=== PATIENT | female | born 1950 | race Caucasian/White ===

== ENCOUNTER 2018-04-18 08:19 | Inpatient (IN) | payer MEDICARE, OTHER ==
[2018-04-13 16:23] LABS: BASOPHILS % (AUTO) 0.3 % (0-1); EOSINOPHILS # (AUTO) 0.3 X10'3 (0-0.9); EOSINOPHILS % (AUTO) 3.8 % (0-6); LYMPHOCYTES # (AUTO) 1.2 X10'3 (1.1-4.8); LYMPHOCYTES % (AUTO) 13.3 % (21-51); MEAN CORPUSCULAR HEMOGLOBIN 32.6 PG (27.0-31.0); MEAN CORPUSCULAR HGB CONC 34.2 % (33.0-36.5); MEAN CORPUSCULAR VOLUME 95.5 FL (78-98); MEAN PLATELET VOLUME 7.7 FL (7.4-10.4); MONOCYTES # (AUTO) 0.7 X10'3 (0-0.9); MONOCYTES % (AUTO) 8.6 % (2-12); NEUTROPHILS # (AUTO) 6.5 X10'3 (1.8-7.7); PRE OP HEMATOCRIT 33.6 % (35.0-45.0); PRE OP HEMOGLOBIN 11.5 g/dL (12.0-16.0); PRE OP PLATELET COUNT 315 X10'3 (140-440); RED BLOOD COUNT 3.52 X10'6 (4.20-5.60); RED CELL DISTRIBUTION WIDTH 14.2 % (11.5-14.5)
[2018-04-13 16:35] LABS: PRE OP PROTIME 9.9 SECONDS (9.0-12.0)
[2018-04-13 16:40] LABS: ALBUMIN 3.1 G/DL (3.4-5.0); ALBUMIN/GLOBULIN RATIO 0.7 (1.1-1.5); ALKALINE PHOSPHATASE 81 IU/L (46-116); BLOOD UREA NITROGEN 13 MG/DL (7-18); BUN/CREATININE RATIO 14.3 (6.6-38.0); CALCIUM 8.7 MG/DL (8.5-10.1); CHLORIDE 100 MMOL/L (99-107); CREATININE 0.91 MG/DL (0.40-0.90); PRE OP ALT 23 U/L (30-65); PRE OP ANION GAP 9 (8-16); PRE OP AST 15 U/L (10-37); PRE OP BILIRUB, TOTAL 0.5 MG/DL (0.0-1.0); PRE OP GLUCOSE 85 MG/DL (70-104); PRE OP POTASSIUM 4.3 MMOL/L (3.4-5.1); PRE OP SODIUM 138 MMOL/L (135-145); TOTAL CARBON DIOXIDE 28.9 MMOL/L (24-32); TOTAL PROTEIN 7.6 G/DL (6.4-8.2); eGFR 61 ML/MIN
[2018-04-18] VITALS (19 sets, daily range): BP systolic 133–177; BP diastolic 73–100
[~2018-04-18] VITALS: Ht 175.3 cm; Wt 130.0 kg
[~2018-04-18 08:19] MED LIST: ASPI-1053 PO; ATOR20TA PO; CALC1TAB82 PO; CETI10CA PO; CHOL50004 PO; CLINDAmcin 900mg/NS 50ml IVPB 50 ML IV ONE; CLOB50FO8 TP; CYAN50003 PO; CYCL-1 PO; DOCUMENT DATE & TIME OF BETA-BLOCKER PO ONE; EST1T PO; GABA-532 PO; GABA300C PO; HYDR-4383 PO; LACT1CAP67 PO; LISI30TA4 PO; LORA0.5T PO; METO50TA17 PO; MULT1TAB74 PO; OMEG1CAP PO; PANT-47 PO; RANI150T8 PO; VENL150C58 PO; VITC500T PO; famotidine 20mg tablet PO ONE; ringers solution, lacted 1,000 ML IV SCH; tranexamic acid inj. 1,000 MG in normal saline 100 ML IV ONE; vancomycin inj 1,500 MG in normal saline 300ml IV soln IV ONE
[2018-04-18] MEDS ORDERED: LIDOcaine 1% (10mg/ml) 2ml vial ONE (08:48)
[2018-04-18] MEDS ORDERED: cloNIDine hcl/PF 100mcg/ml inj ONE (10:28)
[2018-04-18] MEDS ORDERED: ROPIVAcaine 0.5% (5mg/ml) 30ml vial ONE (10:28)
[2018-04-18] MEDS ORDERED: propofol inj 20 ML IV ONE (10:31)
[2018-04-18] MEDS ORDERED: LIDOcaine 2% (20mg/ml) 5ml vial ONE (10:31)
[2018-04-18] MEDS ORDERED: fentaNYL /PF 50mcg/ml 5ml ampule ONE (10:31)
[2018-04-18] MEDS ORDERED: ceFAZolin 1000mg inj ONE (10:32)
[2018-04-18] MEDS ORDERED: sevoflurane 250ml liquid IH ONE (10:46)
[2018-04-18] MEDS ORDERED: rocuronium 10mg/ml inj IV ONE (10:46)
[2018-04-18] MEDS ORDERED: dexamethasone sod phosphate 4mg/ml inj. ONE (11:07)
[2018-04-18] MEDS ORDERED: ondansetron/PF 4mg/2ml inj ONE (11:09)
[2018-04-18] MEDS ORDERED: midazolam 2 mg/2 ml injection ONE (11:12)
[2018-04-18] MEDS ORDERED: hydrALAZINE 20mg/ml inj. IV ONE (11:43)
[2018-04-18] MEDS ORDERED: ondansetron/PF 4mg/2ml inj IV PRN ×2 (11:50→14:20)
[2018-04-18] MEDS ORDERED: morphine 4 MG/ML inj SYRINge IV PRN ×2 (11:50)
[2018-04-18] MEDS ORDERED: ringers solution, lacted 1,000 ML IV SCH (11:50)
[2018-04-18] MEDS ORDERED: enalaprilat dihydrate 2.5mg/2ml vial IV PRN (11:50)
[2018-04-18] MEDS ORDERED: hydrALAZINE 20mg/ml inj. IV PRN (11:50)
[2018-04-18] MEDS ORDERED: fentaNYL/PF 50MCG/1 ML 2ML syringe IV PRN ×2 (11:50)
[2018-04-18] MEDS ORDERED: metoprolol tartrate 1mg/ml inj IV ONE (13:28)
[2018-04-18] MEDS ORDERED: magnesium hydroxide 30ml (MOM) UD suspension PO PRN (14:20)
[2018-04-18] MEDS ORDERED: HYDROcodone/acetaminophen 10/325mg tab PO PRN (14:20)
[2018-04-18] MEDS ORDERED: HYDROmorphone 1 mg/ml syringe IV PRN (14:20)
[2018-04-18] MEDS ORDERED: diphenhydrAMINE 25mg capsule PO PRN ×2 (14:20)
[2018-04-18] MEDS ORDERED: bisacodyl 10mg suppository rectal RC PRN (14:20)
[2018-04-18] MEDS ORDERED: acetaminophen 325mg tablet PO PRN (14:20)
--- NOTE | 2018-04-18 14:25 | NUR ---
Received from OR via , accompanied by DR. LOPEZ, Anesthesiologist and report given by Anesthesiolgist. S/P LT. TKA PER DR. BARNES. PT. DROWSY, RESPONDS EASILY TO NAME, ANSWERS APPROP. DENIES PAIN @ THIS TIME. RESPS. EVEN & UNLABORED, STRONG NON PRODUCTIVE COUGH. LT. KNEE GARDENIA BANDAGE INTACT. POWDER ANGIE TO LT. KNEE IN PLACE FROM OR. HEMOVAC DRAIN TO KEYANNA W/ SM AMT. SANG DRAINAGE PRESENT. MOVES TOES/FEET FREELY. FEET PINK, WARM W/ GOOD CAP REFILL. + STEFANO. DP PULSES PRESENT W/ DOPPLER. PILLOW PLACE BEHIND LT. KNEE PER DR. BARNES. ELLISON TO GRAVITY W/ CL. YELLOW URINE PRESENT. LT. WRIST IV PATENT. PT. REASSURED.
--- NOTE | 2018-04-18 15:07 | NUR ---
MEDICATED FOR PAIN. REASSURED. TAKING ICE CHIPS WITHOUT UPSET.
--- NOTE | 2018-04-18 15:40 | NUR ---
Report called to receiving nurse, CATIA MARION . Transferred via BED. Belongings SENT W/ PT. PT. A X O X 4. APPROP. RESPS. EVEN & UNLABORED. STATES KNEE PAIN LESS AFTER MEDS, "JUST SOME PRESSURE". REASSURED. LT. KNEE GARDENIA DRSG, POWDER ANGIE DRY & INTACT. HEMOVAC DRAIN INTACT W/ SM. AMT. SANG. DRAINAGE PRESENT. LT. FOOT PINK, WARM, W/ GOOD CAP REFILL. MOVING FEET FREELY. ELLISON TO GRAVITY W/ CL. YELLOW URINE PRESENT. LT. WRIST IV PATENT. . Special Issues communicated to receiving nurse.
--- NOTE | 2018-04-18 16:00 | NUR ---
ASSUMED CARE, RECEIVED REPORT FROM LLUVIA BARDALES, PT A&OX4, FAMILY AT BEDSIDE, REPORTS PAIN 5/10, WILL CONTINUE TO MONITOR.
[2018-04-18] MEDS: ceFAZolin 1GM/D5W- ADD-VANTAGE 50 ML IV SCH (16:04)
[2018-04-18] MEDS: HYDROcodone/acetaminophen 10/325mg tab PO PRN ×2 (16:13→20:35)
[2018-04-18] MEDS: potassium Cl 20mEq in NS 1,000 ML IV SCH (17:37)
[2018-04-18] MEDS: aspirin 81mg tab.chew PO SCH (17:40)
--- NOTE | 2018-04-18 18:30 | NUR ---
Problems reprioritized. Patient report given, questions answered & plan of care reviewed with JAEL BARDALES.
--- NOTE | 2018-04-18 18:30 | NUR ---
Patient in room ORTHO 4015. I have received report from mir Naranjo and had the opportunity to ask questions and assume patient care.
[2018-04-18] MEDS ORDERED: EMOLL TP SCH (20:00)
[2018-04-18] MEDS ORDERED: vancomycin/NS 1 GM ADD-VANTAGE 250 ML IV SCH (20:00)
[2018-04-18] MEDS: gabapentin 300mg capsule PO SCH ×2 (20:00→20:35)
[2018-04-18] MEDS ORDERED: CLOBETASOL PROPIONATE TP SCH (20:00)
[2018-04-18] MEDS: sennosides 8.6mg tablet PO SCH (20:36)
[2018-04-18] MEDS: famotidine 20mg tablet PO SCH (20:36)
[2018-04-18] MEDS: metoprolol tartrate 50mg tablet PO SCH (20:36)
[2018-04-18] MEDS ORDERED: RANITIDINE HCL PO SCH (21:00)
[2018-04-18] MEDS ORDERED: cyclobenzaprine 10mg tablet PO ONE (22:55)
[2018-04-18] MEDS ORDERED: ketorolac trometh. 30mg/ml inj. IM SCH (22:55)
[2018-04-18] MEDS: ketorolac trometh. 30mg/ml inj. IV SCH (23:23)
--- NOTE | 2018-04-19 00:03 | NUR ---
at 2200, pt started having terrible spasm in left thigh. administered dilaudid but no relief. muscle spasm was occuring around every 20 seconds or so. hr was up to 110s. contacted Dr. Ruelas and received order for flexiril and toradol. pt states she has less frequent spasms now.
[2018-04-19] MEDS: HYDROcodone/acetaminophen 10/325mg tab PO PRN ×5 (00:36→22:42)
[2018-04-19] MEDS: ceFAZolin 1GM/D5W- ADD-VANTAGE 50 ML IV SCH (00:37)
[2018-04-19 02:00] VITALS: BP 154/87
[2018-04-19] MEDS ORDERED: ketorolac trometh. 30mg/ml inj. IV SCH (02:00)
[2018-04-19] MEDS: ketorolac trometh. 30mg/ml inj. IV SCH ×3 (02:53→14:00)
[2018-04-19] MEDS: potassium Cl 20mEq in NS 1,000 ML IV SCH ×2 (02:58→10:15)
[2018-04-19 06:00] VITALS: BP 121/77
[2018-04-19 06:16] LABS: BASOPHILS % (AUTO) 0 % (0-1); EOSINOPHILS # (AUTO) 0.2 X10'3 (0-0.9); EOSINOPHILS % (AUTO) 1.4 % (0-6); HEMATOCRIT 26.3 % (35.0-45.0); HEMOGLOBIN 8.8 g/dl (12.0-16.0); LYMPHOCYTES # (AUTO) 0.9 X10'3 (1.1-4.8); LYMPHOCYTES % (AUTO) 7.6 % (21-51); MEAN CORPUSCULAR HGB CONC 33.5 % (33.0-36.5); MEAN CORPUSCULAR VOLUME 95.5 FL (78-98); MEAN PLATELET VOLUME 7.6 FL (7.4-10.4); MONOCYTES # (AUTO) 0.7 X10'3 (0-0.9); PLATELET COUNT 325 X10'3 (140-440); RED BLOOD COUNT 2.75 X10'6 (4.20-5.60); RED CELL DISTRIBUTION WIDTH 15.1 % (11.5-14.5); WHITE BLOOD COUNT 11.8 X10'3 (4.5-11.0)
[2018-04-19 07:03] LABS: ALANINE AMINOTRANSFERASE 24 U/L (12-78); ALBUMIN 2.8 G/DL (3.4-5.0); ALBUMIN/GLOBULIN RATIO 0.7 (1.1-1.5); ALKALINE PHOSPHATASE 64 IU/L (46-116); ANION GAP 10 (8-16); ASPARTATE AMINO TRANSFERASE 18 U/L (10-37); BILIRUBIN,TOTAL 0.4 MG/DL (0.1-1.0); BLOOD UREA NITROGEN 18 MG/DL (7-18); BUN/CREATININE RATIO 13.2 (6.6-38.0); CALCIUM 7.5 MG/DL (8.5-10.1); CHLORIDE 101 MMOL/L (99-107); CREATININE 1.36 MG/DL (0.40-0.90); GLUCOSE 112 MG/DL (70-104); POTASSIUM 4.8 MMOL/L (3.5-5.1); SODIUM 137 MMOL/L (135-145); TOTAL CARBON DIOXIDE 25.9 MMOL/L (24-32); TOTAL PROTEIN 6.6 G/DL (6.4-8.2); eGFR 39 ML/MIN
[2018-04-19] MEDS ORDERED: non-formulary drug (Lisinopril 1 TAB) PO SCH (08:00)
[2018-04-19] MEDS: cetirizine 10mg tablet PO SCH (08:55)
[2018-04-19] MEDS: aspirin 81mg tab.chew PO SCH ×2 (08:57→17:03)
[2018-04-19] MEDS: venlafaxine XR 75mg capsule (Q24H) PO SCH (08:57)
[2018-04-19] MEDS: pantoprazole 40mg Tablet.DR PO SCH (08:57)
[2018-04-19] MEDS: gabapentin 300mg capsule PO SCH ×3 (08:58→20:42)
[2018-04-19] MEDS: metoprolol tartrate 50mg tablet PO SCH ×2 (08:58→20:43)
[2018-04-19] MEDS: estradiol 1mg tablet PO SCH (08:58)
[2018-04-19] MEDS: lisinopril 10 MG tablet PO SCH (08:59)
[2018-04-19 10:00] VITALS: BP 123/55
[2018-04-19] MEDS: cyclobenzaprine 10mg tablet PO PRN ×2 (10:30→20:43)
--- NOTE | 2018-04-19 10:57 | NUR ---
Joint consult: Pt having muscle spasms and trouble talking at this time not feeling well; will return for high protein ed prior to d/c. Addendum: 04/19/18 at [address] Amended: Links added.
[2018-04-19] MEDS: diazepam 5mg tablet PO PRN (12:34)
[2018-04-19 14:00] VITALS: BP 122/62
[2018-04-19] MEDS: normal saline 1000ml 1,000 ML IV SCH (17:03)
[2018-04-19 18:00] VITALS: BP 135/69
[2018-04-19] MEDS: sennosides 8.6mg tablet PO SCH (20:42)
[2018-04-19] MEDS: famotidine 20mg tablet PO SCH (20:42)
[2018-04-19 22:00] VITALS: BP 160/67
[2018-04-20] MEDS: diazepam 5mg tablet PO PRN (00:32)
[2018-04-20] MEDS: normal saline 1000ml 1,000 ML IV SCH (02:55)
[2018-04-20 05:00] VITALS: BP 119/83
[2018-04-20] MEDS: HYDROcodone/acetaminophen 10/325mg tab PO PRN ×2 (05:40→10:26)
[2018-04-20 07:21] LABS: BASOPHILS % (AUTO) 0.4 % (0-1); EOSINOPHILS # (AUTO) 0.7 X10'3 (0-0.9); EOSINOPHILS % (AUTO) 7.1 % (0-6); HEMATOCRIT 23.8 % (35.0-45.0); LYMPHOCYTES # (AUTO) 1.7 X10'3 (1.1-4.8); LYMPHOCYTES % (AUTO) 18.2 % (21-51); MEAN CORPUSCULAR HEMOGLOBIN 32.5 PG (27.0-31.0); MEAN CORPUSCULAR HGB CONC 33.6 % (33.0-36.5); MEAN CORPUSCULAR VOLUME 96.6 FL (78-98); MEAN PLATELET VOLUME 7.8 FL (7.4-10.4); MONOCYTES # (AUTO) 1.1 X10'3 (0-0.9); MONOCYTES % (AUTO) 11.7 % (2-12); NEUTROPHILS # (AUTO) 5.8 X10'3 (1.8-7.7); NEUTROPHILS % (AUTO) 62.6 % (42-75); PLATELET COUNT 254 X10'3 (140-440); RED BLOOD COUNT 2.47 X10'6 (4.20-5.60); RED CELL DISTRIBUTION WIDTH 14.9 % (11.5-14.5); WHITE BLOOD COUNT 9.3 X10'3 (4.5-11.0)
[2018-04-20 07:43] LABS: ALANINE AMINOTRANSFERASE 24 U/L (12-78); ALBUMIN 2.7 G/DL (3.4-5.0); ALBUMIN/GLOBULIN RATIO 0.7 (1.1-1.5); ALKALINE PHOSPHATASE 63 IU/L (46-116); ANION GAP 8 (8-16); ASPARTATE AMINO TRANSFERASE 27 U/L (10-37); BILIRUBIN,TOTAL 0.3 MG/DL (0.1-1.0); BLOOD UREA NITROGEN 16 MG/DL (7-18); BUN/CREATININE RATIO 14.3 (6.6-38.0); CALCIUM 7.7 MG/DL (8.5-10.1); CHLORIDE 105 MMOL/L (99-107); CREATININE 1.12 MG/DL (0.40-0.90); GLUCOSE 95 MG/DL (70-104); POTASSIUM 4.1 MMOL/L (3.5-5.1); SODIUM 140 MMOL/L (135-145); TOTAL CARBON DIOXIDE 26.7 MMOL/L (24-32); TOTAL PROTEIN 6.5 G/DL (6.4-8.2); eGFR 48 ML/MIN
[2018-04-20] MEDS: gabapentin 300mg capsule PO SCH (07:53)
[2018-04-20] MEDS: estradiol 1mg tablet PO SCH (07:54)
[2018-04-20] MEDS: pantoprazole 40mg Tablet.DR PO SCH (07:55)
[2018-04-20] MEDS: cetirizine 10mg tablet PO SCH (07:55)
[2018-04-20] MEDS: metoprolol tartrate 50mg tablet PO SCH (07:55)
[2018-04-20] MEDS: aspirin 81mg tab.chew PO SCH (07:56)
[2018-04-20] MEDS: lisinopril 10 MG tablet PO SCH (07:57)
[2018-04-20] MEDS: venlafaxine XR 75mg capsule (Q24H) PO SCH (08:30)
--- NOTE | 2018-04-20 08:30 | NUR ---
Patient in room ORTHO 4015. I have received report from OTILIA BARDALES and had the opportunity to ask questions and assume patient care.
[2018-04-20 10:00] VITALS: BP 129/58
[2018-04-20] MEDS ORDERED: ASPI-1265 PO (10:09)
[2018-04-20] MEDS ORDERED: VAL5T PO (10:11)
[2018-04-20] MEDS ORDERED: HYDR-3972 PO (10:14)
--- NOTE | 2018-04-20 11:47 | NUR ---
F/U: Pt on regular diet with document PO intake 100% meeting nutrient needs with adequate protein to aid in wound healing. Pt being d/c'ed. Will continue to follow. Addendum: 04/20/18 at [address] Amended: Links added.
== END 2018-04-20 12:15 | disposition home or self-care (01) | DRG 470 ==
LOC: PAS IN 08:19 → EDSTATUS 10:45 → ORTHO 4S 16:00
PROVIDERS: ADMIT Orthopaedic Surgery; ATTEND Orthopaedic Surgery
PROC: 3E0T3BZ Introduction of Anesthetic Agent into Peripheral Nerves and Plexi, Percutaneous Approach (ICD-10-PCS; 2018-04-18)
PROC: 0SRD0J9 Replacement of Left Knee Joint with Synthetic Substitute, Cemented, Open Approach (ICD-10-PCS; principal; 2018-04-18 10:46)
DX: M17.12 Unilateral primary osteoarthritis, left knee (principal); D62 Acute posthemorrhagic anemia; M25.562 Pain in left knee; K21.9 Gastro-esophageal reflux disease without esophagitis; G47.30 Sleep apnea, unspecified; Z87.891 Personal history of nicotine dependence; L40.9 Psoriasis, unspecified; Z88.1 Allergy status to other antibiotic agents; G89.29 Other chronic pain; M54.9 Dorsalgia, unspecified; M62.838 Other muscle spasm; F41.9 Anxiety disorder, unspecified; I10 Essential (primary) hypertension
CPT/HCPCS: 36415; 80053; 85025; 85610; 85730; 86885; 86900; 86901; 86920; 87070; 97110; 97116; 97162; 97530; A6449; A6454; A7000; C1713; C1758; C1776; G0378; J0360; J0690; J0735; J1100; J1170; J1885; J2001; J2250; J2270; J2405; J2704; J2795; J3010; J3370; J3490; J7030; J7120

== ENCOUNTER 2020-01-19 05:42 | Day surgery (SDC) | payer MEDICARE, OTHER ==
[2020-01-11 14:48] LABS: BASOPHILS # (AUTO) 0.1 X10'3 (0-0.2); EOSINOPHILS # (AUTO) 0.2 X10'3 (0-0.9); EOSINOPHILS % (AUTO) 2.7 % (0-6); LYMPHOCYTES # (AUTO) 1.6 X10'3 (1.1-4.8); LYMPHOCYTES % (AUTO) 19.2 % (21-51); MEAN CORPUSCULAR HEMOGLOBIN 32.5 PG (27.0-31.0); MEAN CORPUSCULAR HGB CONC 34.4 g/dL (33.0-36.5); MEAN CORPUSCULAR VOLUME 94.6 FL (78-98); MEAN PLATELET VOLUME 8.1 FL (7.4-10.4); MONOCYTES # (AUTO) 0.6 X10'3 (0-0.9); MONOCYTES % (AUTO) 7.1 % (2-12); NEUTROPHILS # (AUTO) 5.9 X10'3 (1.8-7.7); PRE OP HEMATOCRIT 36.8 % (35.0-45.0); PRE OP HEMOGLOBIN 12.7 g/dL (12.0-16.0); PRE OP PLATELET COUNT 278 X10'3 (140-440); RED CELL DISTRIBUTION WIDTH 14.7 % (11.5-14.5)
[2020-01-11 14:59] LABS: ALBUMIN 3.8 G/DL (3.4-5.0); ALBUMIN/GLOBULIN RATIO 0.9 (1.1-1.5); ALKALINE PHOSPHATASE 63 IU/L (46-116); BLOOD UREA NITROGEN 16 MG/DL (7-18); BUN/CREATININE RATIO 14.8 (6.6-38.0); CALCIUM 8.6 MG/DL (8.5-10.1); CHLORIDE 99 MMOL/L (99-107); CREATININE 1.08 MG/DL (0.40-0.90); PRE OP ALT 26 U/L (30-65); PRE OP ANION GAP 11 (8-16); PRE OP AST 17 U/L (10-37); PRE OP BILIRUB, TOTAL 0.6 MG/DL (0.0-1.0); PRE OP GLUCOSE 107 MG/DL (70-104); PRE OP SODIUM 137 MMOL/L (135-145); TOTAL PROTEIN 7.9 G/DL (6.4-8.2); eGFR 50 ML/MIN
[~2020-01-19] VITALS: Ht 175.3 cm; Wt 123.8 kg
[~2020-01-19 05:42] MED LIST changes: +AMLO5TAB16 PO; -ASPI-1053 PO; +ASPI81TA96 PO; -CALC1TAB82 PO; -CETI10CA PO; -CHOL50004 PO; -CLINDAmcin 900mg/NS 50ml IVPB 50 ML IV ONE; +CLOB15OI3 TOP; -CLOB50FO8 TP; -CYAN50003 PO; -CYCL-1 PO; +CYCL-394 PO; -DOCUMENT DATE & TIME OF BETA-BLOCKER PO ONE; +ESTR42.53 VG; -LACT1CAP67 PO; +LEVO25TA2 PO; +LISI-600 PO; -LISI30TA4 PO; +LORA-268 PO; -LORA0.5T PO; -MULT1TAB74 PO; -RANI150T8 PO; -VITC500T PO; +ceFAZolin inj. 3,000 MG in normal saline 100ml IV soln 100 ML IV ONE; -tranexamic acid inj. 1,000 MG in normal saline 100 ML IV ONE; -vancomycin inj 1,500 MG in normal saline 300ml IV soln IV ONE
[2020-01-19] MEDS ORDERED: LIDOcaine 1% (10mg/ml) 2ml vial ONE (06:14)
[2020-01-19] MEDS ORDERED: BUPIVAcaine/PF 2.5mg/ml (0.25%) 10ml vial ONE (06:57)
[2020-01-19 07:11] VITALS: BP 134/70
[2020-01-19 07:12] VITALS: BP 134/70
[2020-01-19] MEDS ORDERED: morphine 2 MG/ML inj. syringe IV PRN (07:35)
[2020-01-19] MEDS ORDERED: labetalol 20mg/4ml (5mg/ml) syringe IV PRN (07:35)
[2020-01-19] MEDS ORDERED: ringers solution, lacted 1,000 ML IV SCH (07:35)
[2020-01-19] MEDS ORDERED: hydrALAZINE 20mg/ml inj. IV PRN (07:35)
[2020-01-19] MEDS ORDERED: fentaNYL/PF 50MCG/1 ML 2ML syringe IV PRN ×2 (07:35)
[2020-01-19] MEDS ORDERED: ondansetron/PF 4mg/2ml inj IV PRN (07:35)
[2020-01-19] MEDS ORDERED: morphine 4 MG/ML inj SYRINge IV PRN (07:35)
[2020-01-19] MEDS ORDERED: LIDOcaine 0.5% (5mg/ml) 50ml vial ONE (07:38)
[2020-01-19] MEDS ORDERED: MIDAZolam 5mg/ml 2ml vial IV PRN (07:40)
[2020-01-19] MEDS ORDERED: fentaNYL/PF 50MCG/1 ML 2ML syringe ONE (08:35)
[2020-01-19] MEDS ORDERED: MIDAZolam 5mg/5ml vial ONE (08:36)
[2020-01-19] MEDS ORDERED: ketorolac trometh. 30mg/ml inj. ONE (09:13)
[2020-01-19 09:26] VITALS: BP 133/66
--- NOTE | 2020-01-19 09:26 | NUR ---
ARRIVED IN PACU VIA GURNEY FROM OR WITH DR Morrissey IN ATTENDANCE. REPORT RECEIVED. VS STABLE. AWAKE. NO C/O PAIN
[2020-01-19 09:36] VITALS: BP 137/83
[2020-01-19 09:46] VITALS: BP 146/82
--- NOTE | 2020-01-19 09:56 | NUR ---
SANTIAGO LIQUIDS. WAITING FOR
--- NOTE | 2020-01-19 10:16 | NUR ---
TO CAR VIA W/C, ASSISTED BY NURSE WITHOUT INCIDENT. REVIEWED INSTRUCTIONS WITH PT AND .
== END 2020-01-19 10:16 | disposition home or self-care (01) ==
LOC: PAS 05:42
PROVIDERS: ATTEND Orthopaedic Surgery Hand Surgery
DX: G56.02 Carpal tunnel syndrome, left upper limb (principal); M65.4 Radial styloid tenosynovitis [de Quervain]; Z20.828 Contact with and (suspected) exposure to other viral communicable diseases; G47.30 Sleep apnea, unspecified; I10 Essential (primary) hypertension; E03.9 Hypothyroidism, unspecified; M19.90 Unspecified osteoarthritis, unspecified site; Z87.891 Personal history of nicotine dependence; Z88.1 Allergy status to other antibiotic agents; Z88.8 Allergy status to other drugs, medicaments and biological substances; Z91.09 Other allergy status, other than to drugs and biological substances; Z79.899 Other long term (current) drug therapy; Z90.49 Acquired absence of other specified parts of digestive tract; Z90.710 Acquired absence of both cervix and uterus; Z96.653 Presence of artificial knee joint, bilateral; Z98.890 Other specified postprocedural states
CPT/HCPCS: 25000; 36415; 64721; 80053; 85025; 87635; A6222; J0690; J1885; J2001; J2250; J3010; J3490; A4215; A6449; J7120

== ENCOUNTER 2020-02-16 06:05 | Day surgery (SDC) | payer MEDICARE, OTHER ==
[2020-02-09 10:42] LABS: ALBUMIN 2.7 G/DL (3.4-5.0); ALBUMIN/GLOBULIN RATIO 0.5 (1.1-1.5); ALKALINE PHOSPHATASE 65 IU/L (46-116); BLOOD UREA NITROGEN 12 MG/DL (7-18); BUN/CREATININE RATIO 11.8 (6.6-38.0); CALCIUM 8.8 MG/DL (8.5-10.1); CHLORIDE 102 MMOL/L (99-107); CREATININE 1.02 MG/DL (0.40-0.90); PRE OP ALT 23 U/L (30-65); PRE OP ANION GAP 9 (8-16); PRE OP AST 18 U/L (10-37); PRE OP BILIRUB, TOTAL 0.4 MG/DL (0.0-1.0); PRE OP GLUCOSE 104 MG/DL (70-104); PRE OP POTASSIUM 4.5 MMOL/L (3.4-5.1); PRE OP SODIUM 139 MMOL/L (135-145); TOTAL CARBON DIOXIDE 28.5 MMOL/L (24-32); TOTAL PROTEIN 7.7 G/DL (6.4-8.2); eGFR 53 ML/MIN
[2020-02-09 10:44] LABS: BASOPHILS % (AUTO) 0.6 % (0-1); EOSINOPHILS # (AUTO) 0.4 X10'3 (0-0.9); EOSINOPHILS % (AUTO) 4.6 % (0-6); LYMPHOCYTES # (AUTO) 1.2 X10'3 (1.1-4.8); LYMPHOCYTES % (AUTO) 15.6 % (21-51); MEAN CORPUSCULAR HEMOGLOBIN 32.5 PG (27.0-31.0); MEAN CORPUSCULAR HGB CONC 33.8 g/dL (33.0-36.5); MEAN CORPUSCULAR VOLUME 96.2 FL (78-98); MEAN PLATELET VOLUME 7.8 FL (7.4-10.4); MONOCYTES # (AUTO) 0.7 X10'3 (0-0.9); MONOCYTES % (AUTO) 9.4 % (2-12); NEUTROPHILS # (AUTO) 5.5 X10'3 (1.8-7.7); NEUTROPHILS % (AUTO) 69.8 % (42-75); PRE OP HEMATOCRIT 37.8 % (35.0-45.0); PRE OP HEMOGLOBIN 12.8 g/dL (12.0-16.0); PRE OP PLATELET COUNT 276 X10'3 (140-440); RED BLOOD COUNT 3.93 X10'6 (4.20-5.60); RED CELL DISTRIBUTION WIDTH 14.4 % (11.5-14.5)
[~2020-02-16] VITALS: Ht 175.3 cm; Wt 124.9 kg
[~2020-02-16 06:05] MED LIST changes: +DOCUMENT DATE & TIME OF BETA-BLOCKER PO ONE; -ceFAZolin inj. 3,000 MG in normal saline 100ml IV soln 100 ML IV ONE; +clindamycin-Cleocin 900mg/D5W 50 ML IV ONE
[2020-02-16] MEDS ORDERED: BUPIVAcaine/PF 2.5mg/ml (0.25%) 10ml vial ONE (06:45)
[2020-02-16] MEDS ORDERED: LIDOcaine 1% (10mg/ml) 2ml vial ONE (07:03)
[2020-02-16] MEDS ORDERED: LIDOcaine 0.5% (5mg/ml) 50ml vial ONE (07:27)
[2020-02-16 07:30] VITALS: BP 141/88
[2020-02-16] MEDS ORDERED: hydrALAZINE 20mg/ml inj. IV PRN (07:35)
[2020-02-16] MEDS ORDERED: labetalol 20mg/4ml (5mg/ml) syringe IV PRN (07:35)
[2020-02-16] MEDS ORDERED: ringers solution, lacted 1,000 ML IV SCH (07:35)
[2020-02-16] MEDS ORDERED: ondansetron/PF 4mg/2ml inj IV PRN (07:35)
[2020-02-16] MEDS ORDERED: morphine 4 MG/ML inj SYRINge IV PRN (07:35)
[2020-02-16] MEDS ORDERED: fentaNYL/PF 50MCG/1 ML 2ML syringe IV PRN ×2 (07:35)
[2020-02-16] MEDS ORDERED: morphine 2 MG/ML inj. syringe IV PRN (07:35)
[2020-02-16] MEDS ORDERED: ceFAZolin 2gm in dextrose, iso 50 ML IV ONE (07:50)
[2020-02-16] MEDS ORDERED: ceFAZolin/D5W- 1GM premix 50 ML IV ONE (08:00)
[2020-02-16] MEDS ORDERED: ceFAZolin/D5W- 1GM premix 50 ML IV SCH (08:00)
[2020-02-16] MEDS ORDERED: MIDAZolam 1mg/ml 10ml vial ONE (09:25)
[2020-02-16] MEDS ORDERED: fentaNYL/PF 50MCG/1 ML 2ML syringe ONE (09:25)
[2020-02-16] MEDS ORDERED: ketorolac trometh. 30mg/ml inj. ONE (09:28)
[2020-02-16] MEDS ORDERED: BUPIVAcaine/PF 2.5mg/ml (0.25%) 10ml vial IJ ONE (09:37)
[2020-02-16 10:34] VITALS: BP 134/95
--- NOTE | 2020-02-16 10:34 | NUR ---
Received from OR via [facility] , accompanied by Anesthesiologist JESSICA and report given by Anesthesiolgist. PATIENT WITH 20G PIV IN LEFT UR RUNNING LR AT 100. DENIES PAIN. RIGHT WRIST DRESSSING IS CDI. + SENSATION TO FINGERS AND THUMB. Addendum: 02/16/20 at 1044 by Garland Patel RN, RN Amended: Links added.
[2020-02-16 10:44] VITALS: BP 156/80
[2020-02-16 10:54] VITALS: BP 160/98
[2020-02-16 11:04] VITALS: BP 134/81
--- NOTE | 2020-02-16 11:14 | NUR ---
PATIENT AND FAMILY AND THEY HAVE VERBALIZED UNDERSTANDING, OPPORTUNITY TO ASK QUESTIONS GIVEN AND PATIENT COMFORTABLE WITH DC. IV TAKEN OUT WITHOUT COMPLICATION. PATIENT HAS MET ALL DC CRITERIA FOR DC HOME. I HAVE REVIEWED D/C INSTRUCTIONS WITH OUT VIA WHEELCHAIR WHERE PATIENT WAS TAKEN HOME WITH ALL BELONGINGS. FAMILY GAVE PATIENT TRANSPORT HOME. SPOUSE AGREES TO HAVE PATIENT USE CPAP FOR 24 HRS. Addendum: 02/16/20 at 1129 by Garland Patel RN, RN Amended: Links added.
== END 2020-02-16 11:14 | disposition home or self-care (01) ==
LOC: PAS 06:05
PROVIDERS: ATTEND Orthopaedic Surgery Hand Surgery
DX: G56.01 Carpal tunnel syndrome, right upper limb (principal); Z20.828 Contact with and (suspected) exposure to other viral communicable diseases; I10 Essential (primary) hypertension; E66.01 Morbid (severe) obesity due to excess calories; Z68.41 Body mass index [BMI] 40.0-44.9, adult; Z79.899 Other long term (current) drug therapy; Z91.09 Other allergy status, other than to drugs and biological substances; Z88.1 Allergy status to other antibiotic agents; Z98.890 Other specified postprocedural states; Z87.891 Personal history of nicotine dependence
CPT/HCPCS: 36415; 64721; 80053; 82948; 85025; 87635; J1885; J2001; J2250; J3010; J3490; A4215; A6449; J7120